=== PATIENT | female | born 1980 | race African-American/Black ===

== ENCOUNTER 2019-05-22 14:48 | Outpatient (CLI) | payer OTHER, SELFPAY | END 2019-05-22 14:49 | disposition home or self-care (01) | PROVIDERS: PCP Family Medicine; Visit Provider Obstetrics & Gynecology Gynecology | DX: Z01.812 Encounter for preprocedural laboratory examination (principal); D25.9 Leiomyoma of uterus, unspecified | CPT/HCPCS: 36415; 86850; 86900; 86901 ==

== ENCOUNTER 2019-06-04 11:46 | Inpatient (IN) | payer OTHER, SELFPAY ==
[2019-05-21 09:44] VITALS: BMI 29.0
[2019-06-04] VITALS (17 sets, daily range): BP systolic 111–140; BP diastolic 69–93; PULSE 62–101; RESP 16–23; TEMP 35.9–36.9; O2SAT 94–100; BMI 29.5
--- NOTE | 2019-06-04 08:25 | P.PNAN_ITS ---
Anes - Initial Pre Proc Eval Procedure: Operation Date: 06/04/19 09:15 Proposed Procedures p Total Abdominal Hysterectomy, Bilateral Salpingectomy - Brigitte Vital MD Date/Time: 06/04/19 08:25 Surgeon: Brigitte Vital MD Pre Op Diagnosis: uterine fibroids Patient Data Age: 39 Gender: F Height: 5 ft 3 in Weight: 74.39 kg Allergies Allergy/AdvReac Type Severity Reaction Status Date / Time No Known Allergies Allergy Verified 05/21/19 10:07 Home Medications Medication Instructions Recorded Confirmed Type escitalopram oxalate 20 mg PO DAILY 05/21/19 05/21/19 History levonorgestrel-ethinyl estrad 1 tablet PO DAILY 05/21/19 05/21/19 History multivitamin [Daily Multi-Vitamin] 1 tablet PO DAILY 05/21/19 05/21/19 History valacyclovir 500 mg PO DAILY 05/21/19 05/21/19 History Patient hx anesthesia problems: none Family hx anesthesia problems: none [facility] Past Medical History Medical History (Updated 06/04/19 @ 08:15 by Jaron Yee MD) Arthritis Family History Family History (Updated 07/28/17 @ 15:50 by DOCTOR UNKNOWN) Father Hypertension Asthma Patient's father is in good health Family history of arthritis Mother Patient's mother is in good health Sibling Patient's brother is in good health Social History Social History Smoking status: Never smoker Alcohol intake: never Anes - Eval Final PreProcedure Day of Procedure 06/04/19 08:25 Patient weight: normal Heart: regular rate and rhythm Lungs: clear to auscultation Airway: Mallampati scale class II Neurological: alert and oriented Last oral intake: >/= 8 hours ASA classification: II Emergent: no Anesthetic plan: proceed Anesthesia type and monitoring: general ETT Informed Consent: The patient's anesthetic plan and its attendant risks and benefits were discussed with the patient/family/POA. Questions were solicited and answers provided to the satisfaction of the patient/family/POA.
[2019-06-04] MEDS: LACTATED RINGERS 1,000 ML 30 ML IV CONT ×2 (08:45→10:41)
--- NOTE | 2019-06-04 08:48 | PM.IMHP ---
H&P: HPI History of Present Illness Chief complaint: uterine fibroids Narrative: Dunia Gerber is a 39 year old female with symptomatic uterine fibroids. Patient with urinary frequency, constipation, and pelvic pressure. Patient without heavy cycles due to continuous ocp's. Patient has no desire for children and requests to proceed with KRISTOFER-BS. RIsks of infection, bleeding, injury to organs (eg. bowel, bladder, ureters, ovaries), DVT, and ansethesia. Patient is aware this will render her sterile. Patient voices understandind and agrees to proceed PMFSH Past Medical History Medical History (Updated 06/04/19 @ 08:50 by Brigitte Vital MD) Arthritis Family History Family History (Updated 07/28/17 @ 15:50 by DOCTOR UNKNOWN) Father Hypertension Asthma Patient's father is in good health Family history of arthritis Mother Patient's mother is in good health Sibling Patient's brother is in good health Social History Social History Smoking status: Never smoker Alcohol intake: never Meds Home Medications and Allergies Home Medications Medication Instructions Recorded Confirmed Type escitalopram oxalate 20 mg PO DAILY 05/21/19 05/21/19 History levonorgestrel-ethinyl estrad 1 tablet PO DAILY 05/21/19 05/21/19 History multivitamin [Daily Multi-Vitamin] 1 tablet PO DAILY 05/21/19 05/21/19 History valacyclovir 500 mg PO DAILY 05/21/19 05/21/19 History Allergies Allergy/AdvReac Type Severity Reaction Status Date / Time No Known Allergies Allergy Verified 05/21/19 10:07 Exam Const: General: healthy appearing and alert Orientation/consciousness: patient oriented x3 Resp: Effort & Inspection: normal respiratory effort Auscultation: clear to auscultation bilaterally Cardio: Rate: regular rate Rhythm: regular rhythm GI: GI Palp: Yes Soft to palpation, No Tenderness to palpation present (GI) and No Palpable mass present : External Female Exam: normal external appearance Speculum Exam - Vagina: normal appearance of the vagina and normal vaginal discharge Speculum Exam - Cervix: normal appearance of the cervix Bimanual exam- vagina & uterus: consistency normal and enlarged (16 wk size) Bimanual Exam- Adnexa, other: normal adnexae and No adnexal tenderness Neuro: General: patient oriented x3 Assessment and Plan Assessment and plan (1) Fibroids: Code(s): D21.9 - Benign neoplasm of connective and other soft tissue, unspecified Status: Acute Assessment and Plan: Plan to proceed with KRISTOFER-BS
[2019-06-04] MEDS: ceFAZolin 2 GM/D5W 50 ML 2 GM/50 ML BAG IVPB (09:10)
[2019-06-04] MEDS: KETOROLAC 30 MG/ML VIAL (*BKC) IV PUSH (10:22)
--- NOTE | 2019-06-04 10:25 | PM.OP ---
Procedure Note - Brief Procedure Note - Brief Date of procedure: 06/04/19 Pre-op diagnosis: uterine fibroids Post-op diagnosis: same Procedure performed: KRISTOFER-BS Anesthesia: GETA Surgeon: Brigitte Vital MD Estimated blood loss (mL): 300 Drains: Yes (aguilera) Packing: No Pathology: yes (uterus and B tubes) Complications: No immediate complications Condition: stable Disposition: PACU Findings: enlarged fibroid uterus; normal appearing tubes and ovaries; posterior uterus adherent to small bowel
--- NOTE | 2019-06-04 10:26 | PM.DS ---
DS: Diagnosis Admitting Diagnosis Admitting Diagnosis: Leiomyoma of uterus, unspecified Discharge Diagnosis (1) S/P KRISTOFER (total abdominal hysterectomy): Code(s): Z90.710 - Acquired absence of both cervix and uterus Status: Acute DS: Summary Time Spent with Patient Time attestation: Total time spent providing and/or coordinating discharge services: Discharge Plan Discharge Patient Disposition: Home, Self-Care Discharge Instructions: pelvic rest x 6 wks; no driving x 2 wks; no lifting >10 lbs Discharge Medications: No Action multivitamin [Daily Multi-Vitamin] Tablet 1 tablet PO DAILY RF: 0 levonorgestrel-ethinyl estrad 0.1-20 mg-mcg tablet 1 tablet PO DAILY RF: 0 valacyclovir 500 mg tablet 500 mg PO DAILY RF: 0 escitalopram oxalate 20 mg tablet 20 mg PO DAILY RF: 0 Quality VTE Prophylaxis VTE prophylaxis: mechanical ordered
--- NOTE | 2019-06-04 11:20 | SUR.PHASEI ---
1120 - family updated on pt's status and sent to floor
[2019-06-04] MEDS: HYDROMORPHONE HCL 1 MG/ML INJ 0.5 MG IV PUSH ×2 (11:31→11:41)
[2019-06-04] MEDS: DEXTROSE 5%/LACTATED RINGERS 1,000 ML 125 ML IV CONT (12:55)
--- NOTE | 2019-06-04 13:15 | PC.NURSE ---
Addendum entered by Lorraine Stockton RN 06/04/19 13:18: The time of this admission was at 1153. Original Note: Pt admitted to room 279 per bed. Alert and oriented x3. NC with 2L O2 in place. Pt. significant other at bedside.
--- NOTE | 2019-06-04 17:51 | OP_ITS ---
DATE OF PROCEDURE: 06/04/2019 PREOPERATIVE DIAGNOSIS: Symptomatic fibroid uterus. POSTOPERATIVE DIAGNOSIS: Symptomatic fibroid uterus. PROCEDURE: Total abdominal hysterectomy, bilateral salpingectomy. ANESTHESIA: General with ET tube. FINDINGS: The uterus is enlarged at the umbilicus with multiple fibroids. Tubes and ovaries appear normal. The entire posterior surface of the uterus is adherent to the underlying small bowel. ESTIMATED BLOOD LOSS: 300 cc. PATHOLOGY: Uterus, bilateral tubes. DESCRIPTION OF PROCEDURE: The patient is taken to the operating room, placed under general anesthesia in the dorsal supine position. She is prepped and draped in the usual sterile fashion. Abdominal exam under anesthesia reveals the uterus to be at the umbilicus, but it does not feel very wide. Decision is made for a Pfannenstiel skin incision, which is made with a scalpel and carried down to the underlying layer of fascia. Fascia is nicked in the midline and extended laterally using Colón scissors. Bleeding vessels in the subcutaneous tissues are cauterized for hemostasis. The incision of the fascia extended laterally using Colón scissors. Ochsners are used to tent the fascia, which is then dissected off using sharp and blunt dissection. The rectal muscles are in the midline. The peritoneum is tented and entered with Metzenbaum. The incision is extended with blunt traction. Pelvic exam at that time reveals dense adhesions to the small bowel posteriorly and multiple fibroids. The bowel is packed away laterally using moist laparotomy sponges. The patent legal assistant applied countertraction to the small bowel as I dissected the small bowel off using sharp dissection under direct visualization as well as blunt dissection. Once the bowel is dissected completely free of the posterior uterus, the round ligaments are doubly ligated with 0 Vicryl, transected, suture ligated with 0 Vicryl. The round ligaments are transected and the anterior leaf of the broad ligament incised meeting in the midline. The utero-ovarian ligaments are isolated. A window is created in the posterior leaf of the broad ligament. The tubes are grasped with a Burchard and pulled towards the uterine fundus. The ligament is clamped, transected, and suture ligated with 0 Vicryl excising the tube but leaving the ovary in place. The uterine vessels are then skeletonized, clamped, transected, and suture ligated with 0 Vicryl. The cardinal and uterosacral ligaments are serially clamped, transected, and suture ligated with 0 Vicryl. Uterosacral ligaments are tagged for future use. The vaginal cuff is entered on the left during the last pedicle. Allis clamp is used to grasp the posterior vaginal cuff and the anterior vaginal cuff. The specimen is amputated using Massiel. The vaginal cuff is closed using 0 Vicryl in a running locked fashion tying each angle to the ipsilateral uterosacral ligaments. One additional [id number] suture is required at the left angle for hemostasis towards the bladder flap. The raw surfaces on the bowel peritoneum required minimal Bovie cautery for hemostasis. The pelvis is irrigated and noted to be hemostatic. All instruments and sponges are removed. The fascia is closed using 0 Vicryl in a running fashion. Subcutaneous tissues are irrigated and made hemostatic using Bovie cautery. Skin is closed using 4-0 Vicryl in a subcuticular fashion. Dermaflex is placed over the incision. The patient is awakened from anesthesia and taken to Recovery in stable condition. Galilea I MT: Margareth
[2019-06-04] MEDS: IBUPROFEN 600 MG TABLET PO (20:06)
[2019-06-04] MEDS: ESCITALOPRAM OXALATE 10 MG TABLET 20 MG PO (20:13)
[2019-06-04] MEDS: METOCLOPRAMIDE HCL INJ 10 MG/2 ML VIAL IV PUSH (20:56)
[2019-06-05] MEDS: IBUPROFEN 600 MG TABLET PO ×4 (02:17→20:58)
[2019-06-05 04:45] VITALS: BP 131/82; PULSE 82; RESP 14; TEMP 36.6; O2SAT 97
[2019-06-05 05:46] LABS: Basophils Percent Auto 0.1 % (0.2-1.2); Hemoglobin 13.4 g/dL (12.0-15.0); Immature Granulocyte Absolute 0.05 K/mm3 (0.00-0.031); Immature Granulocyte Percent A 0.4 % (0-0.5); Lymphocytes Percent Auto 13.6 % (18.3-44.2); Mean Corpuscular HGB Conc 32.7 g/dl (32-36); Mean Corpuscular Hemoglobin 27.5 pg (26-34); Mean Platelet Volume 9.9 fl (7.4-10.4); Monocytes Absolute Auto 0.9 K/mm3 (0.1-0.6); Monocytes Percent Auto 6.7 % (2.6-8.5); Neutrophils Percent Auto 79.2 % (45.5-73.1); Platelet Count Result 303 k/mm3 (150-375); Red Blood Count 4.88 M/mm3 (4.2-5.4); Red Cell Distribution Width 12.8 % (11.5-14.5); White Blood Count 13.9 K/mm3 (4.5-10.0)
--- NOTE | 2019-06-05 06:30 | PC.NURSE ---
PT introductions made and plan of care discussed per post op provider relations advocate surgery, pain management, daily care activities. PT verbalized understanding of such care.
[2019-06-05] MEDS: SIMETHICONE 80 MG TAB.CHEW PO ×3 (07:19→15:11)
[2019-06-05] MEDS: VALACYCLOVIR HCL 500 MG TABLET PO ×2 (07:19→07:30)
[2019-06-05 07:45] VITALS: BP 120/81; PULSE 79; RESP 16; TEMP 36.6; O2SAT 100
--- NOTE | 2019-06-05 07:47 | PM.GYNPNOP ---
FISH LIVER SORTER - A/P Postoperative Procedures: Procedures Operation Date: 06/04/19 09:15 Actual Procedures Side Surgeon p Total Abdominal Hysterectomy, Bilateral Salpingectomy Not Applicable Brigitte Vital MD Postoperative day: 1 Postoperative status: doing well Postoperative plan: routine post-op care Time Spent With Patient Time: Total time spent is greater than 50% in coordination of care (as documented) at patient's floor/unit and/or counseling patient: Time with patient: less than 15 minutes FISH LIVER SORTER- PN:Subj Post-Op Subjective Date/time seen: 06/05/19 07:47 Subjective: patient reports feeling better and pain is well controlled Exam : Other: Inc c/d/i abdomen soft, nt, nd FISH LIVER SORTER - PN: Obj Data Vital Signs Vital Signs: Vital Signs - 24 hr 06/04/19 10:41 06/04/19 10:50 06/04/19 11:00 Temperature 98.4 F Pulse Rate 62 63 75 Respiratory Rate 23 H 20 20 Blood Pressure 123/69 111/71 121/71 Pulse Oximetry 100 99 94 06/04/19 11:15 06/04/19 11:30 06/04/19 11:45 Temperature Pulse Rate 71 77 89 Respiratory Rate 20 20 20 Blood Pressure 121/69 126/69 119/71 Pulse Oximetry 94 94 94 06/04/19 11:56 06/04/19 12:00 06/04/19 12:15 Temperature 96.6 F L Pulse Rate 88 86 Respiratory Rate 18 18 Blood Pressure 127/71 127/69 Pulse Oximetry 100 100 100 06/04/19 12:30 06/04/19 13:00 06/04/19 13:30 Temperature 96.7 F L Pulse Rate 87 93 92 Respiratory Rate 18 20 16 Blood Pressure 132/73 129/77 131/77 Pulse Oximetry 100 98 99 06/04/19 14:30 06/04/19 15:50 06/04/19 20:00 Temperature 96.9 F L 97.2 F L Pulse Rate 89 95 101 H Respiratory Rate 18 20 16 Blood Pressure 126/75 129/88 118/71 Pulse Oximetry 98 100 98 06/04/19 23:00 06/05/19 04:45 Temperature 98.0 F 97.9 F Pulse Rate 88 82 Respiratory Rate 16 14 Blood Pressure 133/81 131/82 Pulse Oximetry 97 97 Intake/Output Intake/Output: Intake & Output 03/20 03/15/20 03/16/20 03/17/20 23:59 23:59 23:59 23:59 Intake Total 550 400 Output Total 1200 2000 Balance -650 -1600 Meds/Results Medications: Active Medications Generic Name Dose Route Start Last Admin Trade Name Freq PRN Reason Stop Dose Admin Hydrocodone Bitart/Acetaminophen 1 tab 06/04/19 11:46 06/05/19 07:20 Guymon 5-325 Mg PO 1 tab Q3H PRN Administration Pain Rated 5 or Less Hydrocodone Bitart/Acetaminophen 1 tab 06/04/19 11:46 Guymon 10-325 Mg PO Q3H PRN Pain Rated 6 or Greater Bisacodyl 10 mg 06/04/19 11:46 Dulcolax Suppository RECTAL ONCE PRN Constipation Escitalopram Oxalate 20 mg 06/04/19 12:05 06/04/19 20:13 Lexapro PO 20 mg DAILY MEDINA Administration Fentanyl Citrate 600 mcg in 30 mls @ 0.5 mls/hr 06/04/19 13:00 06/04/19 17:00 Fentanyl 20 Mcg/Ml Product Development Worker IV CONT 10 mcg/hr .Q24H PRN 0.5 mls/hr SERVICE TESTER Management Titration Protocol 10 MCG/HR Ibuprofen 600 mg 06/04/19 11:46 06/05/19 07:20 Motrin PO 600 mg Q6H PRN Administration Cramping Ketorolac Tromethamine 30 mg 06/04/19 11:46 Toradol Inj IV PUSH 06/09/19 11:47 Q6H PRN Pain Rated 4-6 Metoclopramide HCl 10 mg 06/04/19 11:46 06/04/19 20:56 Reglan IV PUSH 10 mg Q6HR PRN Administration nausea Naloxone HCl 0.1 mg 06/04/19 11:46 Narcan IV PUSH Q2M PRN Respiratory rate less than 10 Simethicone 80 mg 06/04/19 11:46 06/05/19 07:19 Mylicon PO 80 mg Q2H PRN Administration Gas Valacyclovir HCl 500 mg 06/04/19 12:05 06/05/19 07:19 Valtrex PO 500 mg DAILY MEDINA Administration Labs CBC & Chem 7: 06/05/19 05:06 Labs: Laboratory Results - last 24 hr 06/05/19 05:06 WBC 13.9 H RBC 4.88 Hgb 13.4 Hct 41.0 MCV 84.0 MCH 27.5 MCHC 32.7 RDW 12.8 Plt Count 303 MPV 9.9 Immature Gran % (Auto) 0.4 Neut % (Auto) 79.2 H Lymph % (Auto) 13.6 L [place] % (Auto) 6.7 Eos % (Auto) 0.0 Baso % (Auto) 0.1 L Lymph # (Au
--- NOTE | 2019-06-05 09:09 | P.PNAN_ITS ---
Anes - Prog Note Post-Op Date/Time: 06/05/19 09:09 Cardiovascular status: normal Respiratory status: normal Airway patency: baseline Mental status: baseline Post-Op hydration status: normal Vital Signs: Last Vital Signs Temp 36.6 C 06/05/19 07:45 Pulse 79 06/05/19 07:45 Resp 16 06/05/19 07:45 BP 120/81 06/05/19 07:45 Pulse Ox 100 06/05/19 07:45 I/O: Intake & Output 06/04/19 06/05/19 06/05/19 23:59 07:59 15:59 Intake Total 200 400 Output Total 525 2000 Balance -325 -1600 Laboratory Tests 06/05/19 05:06 06/05/19 06/05/19 05:06 05:06 WBC 13.9 H RBC 4.88 Hgb 13.4 Hct 41.0 MCV 84.0 MCH 27.5 MCHC 32.7 RDW 12.8 Plt Count 303 MPV 9.9 Immature Gran % (Auto) 0.4 Neut % (Auto) 79.2 H Lymph % (Auto) 13.6 L [place] % (Auto) 6.7 Eos % (Auto) 0.0 Baso % (Auto) 0.1 L Lymph # (Auto) 1.90 [place] # (Auto) 0.9 H Eos # (Auto) 0.0 Baso # (Auto) 0.0 Abs Immat Gran (auto) 0.05 H Absolute Neuts (auto) 11.0 H Absolute Nucleated RBC 0.0 Nucleated RBC % 0.0 Blood Type O Positive Antibody Screen Negative Post-procedural complaints: none Patient Feedback: Patient satisfied with anesthetic care.
[2019-06-05 10:00] VITALS: PULSE 79; RESP 16; O2SAT 100
[2019-06-05] MEDS: ESCITALOPRAM OXALATE 10 MG TABLET 20 MG PO (17:21)
[2019-06-05 20:45] VITALS: BP 138/86; PULSE 64; RESP 14; TEMP 36.9; O2SAT 98
[2019-06-06] MEDS: IBUPROFEN 600 MG TABLET PO (04:50)
[2019-06-06 07:35] VITALS: BP 117/87; PULSE 77; RESP 16; TEMP 36.6; O2SAT 99
[2019-06-06] MEDS: VALACYCLOVIR HCL 500 MG TABLET PO (08:42)
== END 2019-06-06 10:20 | disposition home or self-care (01) | DRG 743 ==
LOC: ANHOB2 06-05 07:51
PROVIDERS: Admitting Provider Obstetrics & Gynecology Gynecology; PCP Family Medicine; Visit Provider Obstetrics & Gynecology
PROC: 0UT94ZZ Resection of Uterus, Percutaneous Endoscopic Approach (ICD-10-PCS; principal; 2019-06-04 09:15)
DX: D25.9 Leiomyoma of uterus, unspecified (principal); R35.0 Frequency of micturition; K59.00 Constipation, unspecified
CPT/HCPCS: 36415; 85025; 86850; 86900; 86901; 88307; A9270; J0690; J1100; J1170; J1885; J2250; J2405; J2704; J2710; J2765; J3010; J7030; J7120; J7121

== ENCOUNTER → 2021-05-06 14:21 | Outpatient (CLI) | payer OTHER, SELFPAY ==
--- NOTE | ~2021-05-06 | MM_ITS ---
EXAMINATION: MM screening [facility] BI w yolie HISTORY: Screening TECHNIQUE: Craniocaudal and mediolateral oblique 3-D tomosynthesis images were obtained and synthetic 2-D images were generated. CAD analysis was submitted and interpreted. COMPARISON: No prior mammogram is available for comparison at this institution. BREAST PARENCHYMAL COMPOSITION: The breasts are heterogeneously dense, which may obscure small masses . FINDINGS: There is no evidence of suspicious mass, calcification, or architectural distortion to sugg est malignancy in either breast. There has been no suspicious interval change. IMPRESSION: 1. No mammographic evidence of malignancy. 2. Recommend routine screening mammography in one year. BI-RADS Category 1: Negative Reviewed, dictated and finalized at location A. OR TECHNICAL SPECIALIST
== END ==
PROVIDERS: PCP Nurse Practitioner; Visit Provider Nurse Practitioner
DX: Z12.31 Encounter for screening mammogram for malignant neoplasm of breast (principal)
CPT/HCPCS: 77063; 77067

== ENCOUNTER → 2022-05-24 14:52 | Outpatient (CLI) | payer OTHER, SELFPAY ==
--- NOTE | ~2022-05-24 | MM_ITS ---
EXAMINATION: MM screening [facility] w yolie HISTORY: Screening mammogram TECHNIQUE: Craniocaudal and mediolateral oblique 3-D tomosynthesis images were obtained and synthetic 2-D images were generated. CAD analysis was submitted and interpreted. COMPARISON: 05/06/2021 BREAST PARENCHYMAL COMPOSITION: The breasts are heterogeneously dense, which may obscure small masses . FINDINGS: No suspicious mass, calcification, or architectural distortion are identified in either dionne ast to suggest malignancy. There has been no suspicious interval change. IMPRESSION: 1. No mammographic evidence of malignancy. 2. Recommend routine screening mammography in one year. BI-RADS Category 1: Negative Reviewed, dictated and finalized at location A. ERY MACHINE OPERATOR
== END ==
PROVIDERS: PCP Family Medicine; Visit Provider Nurse Practitioner
DX: Z12.31 Encounter for screening mammogram for malignant neoplasm of breast (principal)
CPT/HCPCS: 77063; 77067

== ENCOUNTER → 2023-05-06 12:42 | Outpatient (CLI) | payer BC, SELFPAY ==
--- NOTE | ~2023-05-06 | MM_ITS ---
EXAMINATION: MM screening [facility] BI w yolie HISTORY: Screening mammogram TECHNIQUE: Craniocaudal and mediolateral oblique 3-D tomosynthesis images were obtained and synthetic 2-D images were generated. CAD analysis was submitted and interpreted. COMPARISON: 05/24/2022, 05/06/2021 BREAST PARENCHYMAL COMPOSITION: The breasts are heterogeneously dense, which may obscure small masses . FINDINGS: No suspicious mass, calcification, or architectural distortion are identified in either dionne ast to suggest malignancy. There has been no suspicious interval change. IMPRESSION: 1. No mammographic evidence of malignancy. 2. Recommend routine screening mammography in one year. BI-RADS Category 1: Negative Reviewed, dictated and finalized at location A. HOUSE MATERIAL HANDLER
== END ==
PROVIDERS: PCP Obstetrics & Gynecology Gynecology; Visit Provider Obstetrics & Gynecology Gynecology
DX: Z12.31 Encounter for screening mammogram for malignant neoplasm of breast (principal)
CPT/HCPCS: 77063; 77067

== ENCOUNTER 2023-09-02 05:37 | Emergency (ER) | payer SELFPAY ==
--- NOTE | ~2023-09-02 | US_ITS ---
EXAMINATION: US pelvic complete w TV INDICATION: Ovarian torsion. Comparison:Ultrasound dated 01/14/2016 TECHNIQUE: Multiple transabdominal and endovaginal sonographic images of the pelvis performed. FINDINGS: The uterus is surgically absent. The right ovary measures 2.9 x 2.2 x 2.3 cm and the left ovary measures 2.4 x 1.3 x 1.5 cm. There ar e small follicles in each ovary. Normal doppler signal in both ovaries. There is no free fluid in the pelvis. There are no abnormal masses seen on either side. IMPRESSION: 1. Unremarkable pelvic ultrasound. No evidence for torsion. Reviewed, dictated and finalized at location B.
[2023-09-02 05:42] VITALS: BP 168/112; PULSE 62; RESP 16; TEMP 36.5; O2SAT 100
[2023-09-02 05:55] LABS: Basophils Percent Auto 0.3 % (0.2-1.2); Hematocrit 47.6 % (37.0-47.0); Hemoglobin 16.4 g/dL (12.0-15.0); Immature Granulocyte Absolute 0.03 K/mm3 (0.00-0.031); Immature Granulocyte Percent A 0.3 % (0-0.5); Lymphocytes Percent Auto 20.6 % (18.3-44.2); Mean Corpuscular HGB Conc 34.5 g/dl (32-36); Mean Corpuscular Hemoglobin 28.2 pg (26-34); Mean Corpuscular Volume 81.8 fl (80-100); Mean Platelet Volume 10.1 fl (7.4-10.4); Monocytes Absolute Auto 0.7 K/mm3 (0.1-0.6); Monocytes Percent Auto 7.6 % (2.6-8.5); Neutrophils Absolute Auto 6.9 K/mm3 (1.3-6.7); Neutrophils Percent Auto 71.2 % (45.5-73.1); Platelet Count Result 461 k/mm3 (150-375); Red Blood Count 5.82 M/mm3 (4.2-5.4); Red Cell Distribution Width 12.7 % (11.5-14.5); White Blood Count 9.7 K/mm3 (4.5-10.0)
[2023-09-02 06:06] LABS: Alanine Aminotransferase 16 U/L (6-35); Albumin Level 5.4 g/dL (3.5-5.1); Alkaline Phosphatase 86 U/L (38-126); Anion Gap 15 mmol/L (4-12); Aspartate Amino Transferase 29 U/L (14-36); Bilirubin,Total 0.8 mg/dL (0.2-1.3); Blood Urea Nitrogen 10 mg/dL (7-17); Calcium 10.4 mg/dL (8.4-10.2); Carbon Dioxide 24 mmol/L (22-30); Chloride 101 mmol/L (98-107); Estimated CRCL calculation 68 ml/min; Estimated Glomerular Filt Rate > 60; Glucose 120 mg/dL (65-110); Lipase 233 U/L (23-300); Potassium 3.6 mmol/L (3.4-5.0); Sodium 140 mmol/L (137-145)
--- NOTE | 2023-09-02 06:30 | ED.ABDPAIN ---
HPI - Abdominal Pain General Chief Complaint: Abdominal Pain <Yolanda Burciaga MD - Last Filed: 09/14/23 18:37> Stated Complaint: abd pain <Yolanda Burciaga MD - Last Filed: 09/14/23 18:37> Time Seen by Provider: 09/02/23 06:14 <Yolanda Burciaga MD - Last Filed: 09/14/23 18:37> History of Present Illness HPI narrative: Patient is a 43-year-old female who presents to the emergency department this morning complaining of lower abdominal pain. Patient is unable to specify which side the pain is on but states that is so severe and admits that has been ongoing for the past 3 months although the severity is intermittent. Patient states that the pain has been coming and going and has not been persistent. At its worst it is a 10/10. Patient admits that she was told back in November that she does have ovarian cyst. She also admits to a history of a partial hysterectomy. Patient is concerned that she has got some rupture of her cyst or something causing this severe pain. Patient also complains of diarrhea although not denies any additional symptoms or concerns. <Yolanda Burciaga MD - Last Filed: 09/14/23 18:37> Related Data Home Medications: Home Medications Medication Instructions Recorded Confirmed multivitamin (Daily Multi-Vitamin 1 tablet PO DAILY 05/21/19 08/18/22 tablet) hydroxyzine HCl 25 mg tablet 25 mg PO QID PRN 12/17/22 sertraline 100 mg tablet (Zoloft) 150 mg PO DAILY 12/17/22 tramadol 50 mg tablet 50 mg PO Q6H PRN 12/17/22 <Yolanda Burciaga MD - Last Filed: 09/14/23 18:37> Allergies/Adverse Reactions: Allergies Allergy/AdvReac Type Severity Reaction Status Date / Time No Known Allergies Allergy Verified 05/06/23 10:04 <Yolanda Burciaga MD - Last Filed: 09/14/23 18:37> Review of Systems Review of Systems: All systems are reviewed and are negative unless stated otherwise in the HPI. <Yolanda Burciaga MD - Last Filed: 09/14/23 18:37> PMFSH Past Medical History Medical History: Medical History Acute hemorrhagic colitis Arthritis Colitis Disorder of left patella Fibroids Ovarian cyst Psychophysiological insomnia Submucous leiomyoma of uterus <Yolanda Burciaga MD - Last Filed: 09/14/23 18:37> Surgical History Surgical History: Surgical History S/P KRISTOFER (total abdominal hysterectomy) and bilateral salpingectomy <Yolanda Burciaga MD - Last Filed: 09/14/23 18:37> Family History Family History: Family History Father Hypertension Asthma Patient's father is in good health Family history of arthritis Mother Patient's mother is in good health Sibling Patient's brother is in good health <Yolanda Burciaga MD - Last Filed: 09/14/23 18:37> Social History Social History: Social History Social History: Single Smoking packs per day: 0.50 Smoking cigarettes per day: 10.0 Years smoked: 2 Smoking pack-years: 1.00 Smoking status: Former smoker Tobacco type: cigarettes Second hand tobacco smoke exposure: No Alcohol intake: current Alcohol use details: Occasionally Substance use: never Substance use type: does not use Do You Feel Safe in your Home?: Yes Lack of Transportation: No Lack of Food: Never True Current Housing: I Have Housing Concerned About Future Housing: No Difficulty Paying Gas/Electric Bills: No Difficulty Paying for Meds: No Currently Unemployed: No Education: Master's Degree or Higher Difficulty w/ Childcare or Family Care: No Living arrangements: with family 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
[2023-09-02] MEDS: MORPHINE SULFATE (*CRX) 2 MG/ML INJ IV PUSH (06:47)
[2023-09-02] MEDS: SODIUM CHLORIDE 0.9% IV 1,000 ML 999 ML IV CONT (06:47)
[2023-09-02] MEDS: ONDANSETRON INJ 4 MG/2 ML VIAL IV PUSH (06:47)
--- NOTE | 2023-09-02 07:22 | PC.NURSE ---
assumed care of pt from SHERRON mantilla. pt in room, resting on stretcher, no distress at this time. pt informed we are still waiting on urine sample, ambulated to bathroom. no dizziness upon walking
[2023-09-02 07:42] VITALS: BP 157/98; PULSE 63; RESP 20; TEMP 36.8; O2SAT 100
[2023-09-02 07:53] LABS: Appearance Urine Cloudy (Clear); Bacteria Urine 1+ /hpf; Bilirubin Urine Negative (Negative); Blood Urine Negative (Negative); Color Urine Dark Yellow (Yellow); Glucose Urine UA Negative (Negative); Ketones Urine 2+ mg/dL (Negative); Leukocyte Esterase Ur Negative LEU/UL (Negative); Mucus Urine Present /lpf; Need Manual Microscopic Reviewed; Nitrate Urine Negative (Negative); Protein Urine 3+ mg/dL (Negative); Specific Grav Ur 1.043 (1.001-1.035); Squamous Epithelial Cell Urine Moderate /hpf (Few); WBC Urine 0-5 /hpf (0-3); pH Urine 5.5 (5.0-9.0)
[2023-09-02 07:54] LABS: Add Urine Microscopic? YES
[2023-09-02 09:15] VITALS: BP 142/82; PULSE 67; RESP 16; TEMP 36.7; O2SAT 100
== END 2023-09-02 09:17 | disposition home or self-care (01) ==
PROVIDERS: Emergency Provider Emergency Medicine; PCP Family Medicine
DX: K52.9 Noninfective gastroenteritis and colitis, unspecified (principal); M19.90 Unspecified osteoarthritis, unspecified site; F51.04 Psychophysiologic insomnia; Z87.891 Personal history of nicotine dependence; Z90.710 Acquired absence of both cervix and uterus; Z79.899 Other long term (current) drug therapy
CPT/HCPCS: 36415; 76830; 76856; 80053; 81001; 83690; 85025; 96361; 96374; 96375; 99284; J2270; J2405; J7030

== ENCOUNTER 2024-05-25 09:33 | Outpatient (CLI) | payer BC, SELFPAY ==
--- OUTSIDE RECORDS SUMMARY | 2024-05-25 10:10 | XMS_ITS | Clinical Summary ---
Author Organization [facility] Address [address] [place] [id number] Care Team Providers Care Oleomargarine Maker Name Role Phone Sol Garcia NP Primary Care Pro vider Allergies No known active allergies Medications SUMAtriptan (IMITREX) 50 mg tabletIndicatio ns:Migraine Take 1 tablet (50 mg total) by mouth once as needed for migraine May repeat after 2 hours. 9 tablet 5 2 Active butalbital-acet aminophen-caffe ine (ESGIC) 50-325-40 mg per tabletIndicatio ns:Migraine Take 1 tablet by mouth every 4 (four) hours as needed for headaches Use no more than 5/day, 10/week, 30/month. 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 Intractable migraine without aura and without status migrainosus 05/28/2021 Assessment & Plan (05/28/2021 5:14 PM JUNIOR ART DIRECTOR): Imitrex sent to the pharmacy. esgic sent to the pharmacy for pain. Keep yourself well hydrated. Make an appointment with your PCP to talk about prevention. Social History Tobacco Use Types Packs/Day Years Used Date Smoking Tobacco: Never Assessed Comments Unknown Sex and Gender Information Value Date Recorded Sex Assigned at Not on file Legal Sex Female 2:22 PM JUNIOR ART DIRECTOR Gender Identity Female 05/28/2021 3:13 PM JUNIOR ART DIRECTOR Sexual Orientation Straight 05/28/2021 3: 13 PM JUNIOR ART DIRECTOR Obstetrics History Plan of Treatment Health Maintenance Due Date Last Done Comments Breast Cancer Screening-Mammogram 1981 Cervical Cancer Screening 1981 Depression Screening 1981 Hepatitis C Screening 1981 Varicella Vaccines (1 of 2 - 13+ 2-dose series) 1994 Regular Well Visit/Exam 18-64 1999 Covid-19 Vaccine (3 - 2023-2 5 season) 2023 01/28/2021, 05/27/2020 Influenza Vaccine (#1) 2023 DTaP/Tdap/Td Vaccine (2 - Td or Tdap) 06/08/2028 06/08/2018 Hepatitis B Screening Completed 01/12/2019 , 07/10/2018, 06/08/2018 HPV Vaccines Aged Out No longer eligi ble based on patient's age to complete this topic Pneumococcal vaccine <65 Aged Out No longer eligible based on patient's age to complete this topic Insurance [employer] OPEN ACCESS Care Teams Oleomargarine Maker Relationship Specialty Start Date End Date Sol Garcia NP PCP - General Internal Medicine 05/28/21
--- OUTSIDE RECORDS SUMMARY | 2024-05-25 10:10 | XMS_ITS | Referral Summary ---
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 Intractable migraine without aura and without status migrainosus 05/28/2021 Assessment & Plan (05/28/2021 5:14 PM STAINED GLASS WINDOW DESIGNER): Imitrex sent to the pharmacy. esgic sent to the pharmacy for pain. Keep yourself well hydrated. Make an appointment with your PCP to talk about prevention. Social History Tobacco Use Types Packs/Day Years Used Date Smoking Tobacco: Never Assessed Comments Unknown Sex and Gender Information Value Date Recorded Sex Assigned at Not on file Legal Sex Female 2:22 PM STAINED GLASS WINDOW DESIGNER Gender Identity Female 05/28/2021 3:13 PM STAINED GLASS WINDOW DESIGNER Sexual Orientation Straight 05/28/2021 3: 13 PM STAINED GLASS WINDOW DESIGNER Plan of Treatment Not on file Insurance [employer] OPEN ACCESS [id number] [place] [id number] Care Teams Test Grader Relationship Specialty Start Date End Date Sol Garcia NP PCP - General Internal Medicine 05/28/21
--- OUTSIDE RECORDS SUMMARY | 2024-05-25 10:10 | XMS_ITS | Clinical Summary ---
Author Organization [facility] [employer] Address [address] [facility] [place] [address] Care Team Providers Care Hands And Dial Inspector Name Role Phone Unavailable Primary Care Provider Unavailabl e Source Comments [facility] [employer],non-owned Affiliates and Associated Physician Practices is amultiple site organization consisting of ambulatory clinics and hospital sitesin [place], [place] and [place]. This disclosure is being madepursuant to the Care Everywhere program and may not contain all information available regarding this patient. Last updated 17.[facility] [employer] Allergies No known active allergies Immunizations Name Administration Dates Next Due HEP A VACCINE, ADULT 01/12/2019,06/08/2018 HEP B VACCINE, ADULT 3 DOSE 01/12/2019, 9,06/08/2018 TDAP (7yrs+) 06/08/2018 Social History Tobacco Use Types Packs/Day Years Used Date Smoking Tobacco: Never Assessed Sex and Gender Information Value Date Recorded Sex Assigned at Not on file Gender Identity Not on file Sexual Orientation Not on file Plan of Treatment Health Maintenance Due Date Last Done Comments LIPID TESTING 1981 MAMMOGRAM 1981 PAP SMEAR 1981 HIV SCREENING 02/15/1996 HEPATITIS C SCREENING 02/10/1999 COVID-19 VACCINE (2023-2 5 season) 2023 INFLUENZA VACCINE (#1) 2023 DEPRESSION SCREENING 03/21/2024 DTAP/TDAP/TD VACCINES (2 - T d or Tdap) 06/08/2028 06/08/2018 ZOSTER VACCINE (1 of 2) 2031 HEPATITIS A VACCINE Completed 01/12/2019, 06/08/2018 HEPATITIS B VACCINE Completed 01/12/2019, 07/10/2018, 06/08/2018 HIB VACCINE Aged Out No longer eligi ble based on patient's age to complete this topic HPV VACCINE Aged Out No longer eligi ble based on patient's age to complete this topic MENINGOCOCCAL (Group B) VACCINE Aged Out No longer eligible b ased on patient's age to complete this topic MENINGOCOCCAL VACCINE Aged Out No drew patrick eligible based on patient's age to complete this topic PNEUMOCOCCAL VACCINE Aged Out No long er eligible based on patient's age to complete this topic
--- OUTSIDE RECORDS SUMMARY | 2024-05-25 10:10 | XMS_ITS | Referral Summary ---
Author Organization [facility] [employer] Address [address] [facility] [place] [address] Care Team Providers Care Joiner Name Role Phone Unavailable Primary Care Provider Unavailabl e Source Comments [facility],non-owned Affiliates and Associated Physician Practices is amultiple site organization consisting of ambulatory clinics and hospital sitesin [place], [place], [place] and [place]. This disclosure is being madepursuant to the Care Everywhere program and may not contain all information available regarding this patient. Last updated 17.[facility] Allergies No known active allergies Immunizations Name [...] Orientation Not on file Plan of Treatment Not on file
--- OUTSIDE RECORDS SUMMARY | 2024-05-25 10:10 | XMS_ITS | Patient Health Summary ---
Author Organization [facility] [employer] Address [address] [facility] [place] [address] Care Team Providers Care Catering Convention Services Manager Name Role Phone Unavailable Primary Care Provider Unavailabl e Note from [facility],non-owned Affiliates and Associated Physician Practices is amultiple site organization consisting of ambulatory clinics and hospital sitesin [place], [place], [place] and [place]. This disclosure is being madepursuant to the Care Everywhere program and may not contain all information available regarding this patient. Last updated 17.[facility] Allergies No known active allergies Immunizations * HEP A VACCINE, ADULT(Given 01/12/2019, 06/08/2018) * HEP B VACCINE, ADULT 3 DOSE(Given 01/12/2019, 07/10/2018, 06/08/2018) * TDAP (7yrs+)(Given 06/08/2018) Social History Tobacco Use Types Packs/Day Years Used Date Smoking Tobacco: Never Assessed Sex and Gender Information Value Date Recorded Sex Assigned at Not on file Gender Identity Not on file Sexual Orientation Not on file
[2024-05-25 10:46] LABS: Hematocrit 40.4 % (37.0-47.0); Hemoglobin 13.1 g/dL (12.0-15.0); Mean Corpuscular HGB Conc 32.4 g/dl (32-36); Mean Corpuscular Hemoglobin 28.1 pg (26-34); Mean Corpuscular Volume 86.5 fl (80-100); Mean Platelet Volume 10.2 fl (7.4-10.4); Platelet Count Result 352 k/mm3 (150-375); Red Blood Count 4.67 M/mm3 (4.2-5.4); Red Cell Distribution Width 12.6 % (11.5-14.5); White Blood Count 8.9 K/mm3 (4.5-10.0)
[2024-05-25 11:21] LABS: Alanine Aminotransferase 14 U/L (6-35); Albumin Level 4.4 g/dL (3.5-5.1); Alkaline Phosphatase 70 U/L (38-126); Anion Gap 8 mmol/L (4-12); Aspartate Amino Transferase 22 U/L (14-36); Bilirubin,Total 0.2 mg/dL (0.2-1.3); Blood Urea Nitrogen 10 mg/dL (7-17); CRP < 0.5 mg/dL (<1.0); Calcium 9.3 mg/dL (8.4-10.2); Carbon Dioxide 29 mmol/L (22-30); Chloride 104 mmol/L (98-107); Estimated Glomerular Filt Rate > 60; Glucose 91 mg/dL (65-110); Potassium 3.9 mmol/L (3.4-5.0); Sodium 141 mmol/L (137-145)
[2024-05-25 11:28] LABS: Erythrocyte Sedimentation Rate 1 mm/hr (0-20)
[2024-05-30 05:53] LABS: Immunoglobulin A 129 mg/dL (47-310); TTG IGA AB <1.0 U/mL
== END 2024-05-25 09:34 | disposition home or self-care (01) ==
LOC: ANHLAB 09:35
PROVIDERS: PCP Family Medicine; Visit Provider Nurse Practitioner
DX: R19.7 Diarrhea, unspecified (principal)
CPT/HCPCS: 36415; 80053; 82784; 84443; 85027; 85652; 86140; 86364

== ENCOUNTER 2024-07-31 02:34 | Day surgery (SDC) | payer BC, SELFPAY ==
[2024-07-17 14:32] VITALS: BMI 24.0
--- OUTSIDE RECORDS SUMMARY | 2024-07-31 02:37 | XMS_ITS | Clinical Summary ---
Author Organization [facility] Address [address] [place] [phone] Care Team Providers Care Assistant Sales Manager Name Role Phone Sol Garcia NP Primary [...] 05/28/2021 Assessment & Plan (05/28/2021 5:14 PM SHEETFED PRESS OPERATOR): Has recovered from COVID-19 but now continues to have migraine headaches. Intractable migraine without aura and without status migrainosus 05/28/2021 Assessment & Plan (05/28/2021 5:14 PM SHEETFED PRESS OPERATOR): Imitrex sent to the pharmacy. esgic sent to the pharmacy for pain. Keep yourself well hydrated. Make an appointment with your PCP to talk about prevention. Social History Tobacco Use Types Packs/Day Years Used Date Smoking Tobacco: Never Assessed Comments Unknown Sex and Gender Information Value Date Recorded Sex Assigned at Not on file Legal Sex Female 2:22 PM SHEETFED PRESS OPERATOR Gender Identity Female 05/28/2021 3:13 PM SHEETFED PRESS OPERATOR Sexual Orientation Straight 05/28/2021 3: 13 PM SHEETFED PRESS OPERATOR Obstetrics History Plan of Treatment Health Maintenance [...] patient's age to complete this topic Insurance [employer] OPEN ACCESS Care Teams Assistant Sales Manager Relationship Specialty Start Date End Date Sol Garcia NP PCP - General Internal Medicine 05/28/21
--- OUTSIDE RECORDS SUMMARY | 2024-07-31 02:37 | XMS_ITS | Clinical Summary ---
Author Organization [facility] [employer] Address [address] [facility] [place] [address] Care Team Providers Care Guard Captain Name Role Phone Unavailable Primary Care Provider Unavailabl e Source Comments [facility] [employer],non-owned Affiliates and Associated Physician Practices is amultiple site organization consisting of ambulatory clinics and hospital sitesin [place], [place]. This disclosure is being madepursuant to the Care Everywhere program and may not contain all information available regarding this patient. Last updated 17.[facility] [employer] Allergies No known active allergies Immunizations Immunization Administration Dates Next Due HEP A VACCINE, ADULT 01/12/2019,06/08/2018 HEP B VACCINE, ADULT 3 DOSE 01/12/2019, 9,06/08/2018 TDAP (7yrs+) 06/08/2018 Social History Tobacco Use Types Packs/Day Years Used Date Smoking Tobacco: Never Assessed Comments Unknown Sex and Gender Information Value Date Recorded Sex Assigned at Not on file Legal Sex Female 2:09 PM CDT Gender Identity Not on file Sexual Orientation Not on file Plan of Treatment Health Maintenance Due Date Last Done Comments LIPID TESTING 1981 MAMMOGRAM 1981 HIV SCREENING 02/15/1996 HEPATITIS C SCREENING 02/10/1999 COVID-19 VACCINE (2023-2 5 season) 2023 DEPRESSION SCREENING 03/21/2024 INFLUENZA VACCINE (Season Ended) 2024 DTAP/TDAP/TD VACCINES (2 - T d or [...] complete this topic MENINGOCOCCAL (Group B) VACCINE SHARED DECISION-MAKING Aged Out No longer eligible based on patient's age to complete this topic MENINGOCOCCAL GROUPS A/C/Y/W VACCINE Aged Out No longer eligible b ased on patient's age to complete this topic PNEUMOCOCCAL VACCINE Aged Out No long er eligible based on patient's age to complete this topic Insurance [employer]
--- OUTSIDE RECORDS SUMMARY | 2024-07-31 02:37 | XMS_ITS | Continuity of Care Document ---
Author Organization [facility] Address [address] [place] [address] Phone Care Team Providers Care Truck Repair Service Estimator Name Role Phone Boy PT, DPT, Maryam Unavailable Unavail able Procedures Procedure Date PT Re-evaluation Therapeutic Activities Therapeutic Exercise Neuromuscular Re-Ed Manual Therapy Therapeutic Activities Therapeutic Exercise Neuromuscular Re-Ed Manual Therapy Therapeutic Activities Therapeutic Exercise Neuromuscular Re-Ed Manual Therapy Therapeutic Activities Neuromuscular Re-Ed Therapeutic Exercise Manual Therapy Therapeutic Activities Neuromuscular Re-Ed Therapeutic Exercise Manual Therapy Therapeutic Activities Neuromuscular Re-Ed Therapeutic Exercise Manual Therapy PT Evaluation Low Complexity Therapeutic Activities Neuromuscular Re-Ed Therapeutic Exercise Advance Directives Directive Yes / No Effective Date File Name No Information Encounters Encounter Description Practice Location Reason(s) For Visit Diagnoses Date Provider Providers Copied on Encounter [facility], [address], [place], [place], [id number], [place] tel:[phone] [place] No Information Boy Francisco. . Referring Provider: Constance Martinez, [address], [place], [address]. tel:[phone] [place] [address] [address] [facility] [address], [place], [place], [id number], tel:[phone] [place] No Information [place] Maryam. . Referring Provider: Constance Martinez, [address] [facility] [address], [place], [address]. tel:[phone] [place] [address] [address] [facility] [facility] [address] [address], [place], [place], [id number], [place] tel:[phone] [place] No Information Traci Benson. . Referring Provider: Constance Martinez, [address] [facility] [address], [place], [address]. tel:[phone] [place] [address] [address] [facility] [address], [place], [place], [id number], [place] tel:[phone] [place] No Information [place] Maryam. . Referring Provider: Constance Martinez, [address] [facility] [address], [place], [address]. tel:[phone] [place], [place] [id number] [facility] [address], [place], [place], [id number], tel:[phone] [place] No Information [place] Maryam. . Referring Provider: Constance Martinez, [address] [facility] [address], [place], [address]. tel:[phone] [place], [place] [id number] [facility] [address], [place], [place], [id number], [place] tel:[phone] [place] No Information [place] Maryam. . Referring Provider: Constance Martinez, [address] [facility] [address], [place], [address]. tel:[phone] [place], [place] [address] [place], [address], [place], [place], [id number], [place] tel:[phone] [place] No Information Traci Benson. . Referring Provider: Constance Martinez, [address] [facility], [place], [address]. tel:[phone] Family History Family Member Type Diagnosis Age At Onset No Information Payers Payer name Insurance type Covered constitution party ID Authoriza tion(s) No Information Social History Type Description Quantity Date Captured Comments Alcohol Use Details Unknown Caffeine Use Details Unknown Tobacco Use Status No Information Smoking Status No Information Non-Smoking Tobacco Use Details : No Details Available : No Details Available Sex Female Chief Complaint And Reason For Visit No Information Reason For Referral Reason For Referral No Information History Of Present Illness Encounter Date Complaint History Of Prese nt Illness No Information Functional Status Date Functional Assessmen t No Information Instructions Date Instruction Additional Infor mation No Information Assessments Type Assessment Date No Information Patient Care Teams Name Effective Dates (start - stop) Status Members No Information
--- OUTSIDE RECORDS SUMMARY | 2024-07-31 02:37 | XMS_ITS | Referral Summary ---
Author Organization [facility] Address [address] [place] [phone] Care Team Providers Care Recoverer Name Role Phone Sol Garcia NP Primary [...] 05/28/2021 Assessment & Plan (05/28/2021 5:14 PM CHARACTER IMPERSONATOR): Has recovered from COVID-19 but now continues to have migraine headaches. Intractable migraine without aura and without status migrainosus 05/28/2021 Assessment & Plan (05/28/2021 5:14 PM CHARACTER IMPERSONATOR): Imitrex sent to the pharmacy. esgic sent to the pharmacy for pain. Keep yourself well hydrated. Make an appointment with your PCP to talk about prevention. Social History Tobacco Use Types Packs/Day Years Used Date Smoking Tobacco: Never Assessed Comments Unknown Sex and Gender Information Value Date Recorded Sex Assigned at Not on file Legal Sex Female 2:22 PM CHARACTER IMPERSONATOR Gender Identity Female 05/28/2021 3:13 PM CHARACTER IMPERSONATOR Sexual Orientation Straight 05/28/2021 3: 13 PM CHARACTER IMPERSONATOR Plan of Treatment Not on file Insurance [employer] OPEN ACCESS [id number] [place] [id number] Care Teams Recoverer Relationship Specialty Start Date End Date Sol Garcia NP PCP - General Internal Medicine 05/28/21
[2024-07-31 10:42] VITALS: BP 128/90; PULSE 76; RESP 17; TEMP 36.1; O2SAT 100; BMI 22.0
--- NOTE | 2024-07-31 10:45 | P.PNAN_ITS ---
Anes - Initial Pre Proc Eval Procedure: Operation Date: 07/31/24 11:30 Proposed Procedures p Colonoscopy - Amado Jacobsen MD Date/Time: 07/31/24 10:45 Surgeon: Amado Jacobsen MD Pre Op Diagnosis: Noninfective gastroenteritis and colitis Patient Data Age: 44 Gender: F Height: 1.63 m Weight: 58.2 kg Last Vital Signs Temp 36.1 C L 07/31/24 10:42 Pulse 76 07/31/24 10:42 Resp 17 07/31/24 10:42 BP 128/90 07/31/24 10:42 Pulse Ox 100 07/31/24 10:42 O2 Del Method Room Air 07/31/24 10:42 Allergies Allergy/AdvReac Type Severity Reaction Status Date / Time No Known Allergies Allergy Verified 07/31/24 10:42 Home Medications ?Medication ?Instructions ?Recorded ?Confirmed ?Type multivitamin (Daily Multi-Vitamin 1 tablet PO DAILY 05/21/19 07/17/24 History tablet) sertraline 100 mg tablet 100 mg PO DAILY #90 tabs 04/30/24 07/17/24 Rx valacyclovir 500 mg tablet 500 mg PO DAILY #90 tabs 04/30/24 07/17/24 Rx dicyclomine 10 mg capsule 10 mg PO .every 6 hours PRN 06/04/24 07/17/24 Rx abdominal pain #120 caps buspirone 10 mg tablet 10 mg PO TID #90 tabs 07/09/24 07/17/24 Rx Patient hx anesthesia problems: none Family hx anesthesia problems: none Results Review: All pre-operative results and documents have been reviewed as part of the pre- operative evaluation. [facility] Past Medical History Medical History Submucous leiomyoma of uterus Psychophysiological insomnia Disorder of left patella Ovarian cyst Acute hemorrhagic colitis Colitis Fibroids Arthritis Surgical History Surgical History S/P KRISTOFER (total abdominal hysterectomy) and bilateral salpingectomy Family History Family History Father Hypertension Asthma Patient's father is in good health Family history of arthritis Mother Patient's mother is in good health Sibling Patient's brother is in good health Social History Social History Social History: Single Smoking packs per day: 0.5 Smoking cigarettes per day: 10.0 Years smoked: 5 Smoking pack-years: 2.50 Smoking status: Current every day smoker Tobacco type: cigarettes Second hand tobacco smoke exposure: No Alcohol intake: never Alcohol use details: Occasionally Substance use: current Substance use type: marijuana Other substance usage details: marijuana weekly Do You Feel Safe in your Home?: Yes Lack of Transportation: No Lack of Food: Never True Current Housing: I Have Housing Concerned About Future Housing: No Difficulty Paying Gas/Electric Bills: No Difficulty Paying for Meds: No Currently Unemployed: No Education: Master's Degree or Higher Difficulty w/ Childcare or Family Care: No Living arrangements: alone 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d by the Patient): Straight or Heterosexual Spiritual care concerns: No Anes - Eval Final PreProcedure Day of Procedure 07/31/24 10:45 Patient weight: normal Heart: regular rate and rhythm Lungs: clear to auscultation Airway: Mallampati scale class II Neurological: alert and oriented Last oral intake: >/= 8 hours ASA classification: II Emergent: no Anesthetic plan: proceed Anesthesia type and monitoring: general GIVS and standard monitoring Results Review: All pre-operative results and documents have been reviewed as part of the pre- operative evaluation. Informed Consent: The patient's anesthetic plan and its attendant risks and benefits were discussed with the patient/family/POA. Questions were solicited and answers provided to the satisfaction of the patient/family/POA.
[2024-07-31] MEDS: LACTATED RINGERS 1,000 ML 150 ML IV CONT (10:53)
--- NOTE | 2024-07-31 11:01 | PM.HPGS ---
History of Present Illness History of Present Illness Consent: Risks, benefits, and alternatives have been discussed and questions answered. Patient agrees to proceed with procedure. Chief complaint: Noninfective gastroenteritis and colitis Narrative: Dunia Gerber is a 44 year old female here for first colonoscopy, diarrhea for more than 1 year, serology for celiac negative Review of Systems Review of Systems: All systems reviewed & are unremarkable except as noted in HPI and below PMFSH Past Medical History Medical History Submucous leiomyoma of uterus Psychophysiological insomnia Disorder of left patella Ovarian cyst Acute hemorrhagic colitis Colitis Fibroids Arthritis Surgical History Surgical History S/P KRISTOFER (total abdominal hysterectomy) and bilateral salpingectomy Family History Family History Father Hypertension Asthma Patient's father is in good health Family history of arthritis Mother Patient's mother is in good health Sibling Patient's brother is in good health Social History Social History Social History: Single Smoking packs per day: 0.5 Smoking cigarettes per day: 10.0 Years smoked: 5 Smoking pack-years: 2.50 Smoking status: Current every day smoker Tobacco type: cigarettes Second hand tobacco smoke exposure: No Alcohol intake: never Alcohol use details: Occasionally Substance use: current Substance use type: marijuana Other substance usage details: marijuana weekly Do You Feel Safe in your Home?: Yes Lack of Transportation: No Lack of Food: Never True Current Housing: I Have Housing Concerned About Future Housing: No Difficulty Paying Gas/Electric Bills: No Difficulty Paying for Meds: No Currently Unemployed: No Education: Master's Degree or Higher Difficulty w/ Childcare or Family Care: No Living arrangements: alone 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d by the Patient): Straight or Heterosexual Spiritual care concerns: No Meds Home Medications and Allergies Home Medications ?Medication ?Instructions ?Recorded ?Confirmed ?Type multivitamin (Daily Multi-Vitamin 1 tablet PO DAILY 05/21/19 07/17/24 History tablet) sertraline 100 mg tablet 100 mg PO DAILY #90 tabs 04/30/24 07/17/24 Rx valacyclovir 500 mg tablet 500 mg PO DAILY #90 tabs 04/30/24 07/17/24 Rx dicyclomine 10 mg capsule 10 mg PO .every 6 hours PRN 06/04/24 07/17/24 Rx abdominal pain #120 caps buspirone 10 mg tablet 10 mg PO TID #90 tabs 07/09/24 07/17/24 Rx Allergies Allergy/AdvReac Type Severity Reaction Status Date / Time No Known Allergies Allergy Verified 07/31/24 10:42 Vital Signs Vital Signs - 24 hr 07/31/24 10:42 Temperature 97 F L Pulse Rate 76 Respiratory Rate 17 Blood Pressure 128/90 Pulse Oximetry 100 Oxygen Delivery Room Air Exam Const: General: comfortable and no acute distress HENMT: Face/Nose/Sinus: Normal nares present Eyes: General: appearance normal, both eyes and all related structures Neck: Neck: no JVD Resp: Auscultation: clear to auscultation bilaterally Cardio: Rate: regular rate Rhythm: regular rhythm GI: Inspection: non-distended GI Palp: Yes Soft to palpation Skin: General skin exam: normal color Neuro: General: gait normal Speech: normal speech Extrem: General: normal to inspection Psych: Mental Status: mental status grossly normal Assessment and Plan Assessment and plan (1) Diarrhea: Qualifiers: Diarrhea type: unspecified type Qualified Code(s): R19.7 - Diarrhea, unspecified Code(s): R19.7 - Diarrhea, unspecified Status: Acute Assessment and Plan: colonoscopy with random biopsies
[2024-07-31 11:17] VITALS: BP 86/54; PULSE 74; RESP 24; O2SAT 100
[2024-07-31 11:27] VITALS: BP 100/66; PULSE 77; RESP 24; O2SAT 100
[2024-07-31 11:37] VITALS: BP 108/65; PULSE 74; RESP 22; O2SAT 100
[2024-07-31 11:47] VITALS: BP 104/71; PULSE 73; RESP 22; O2SAT 100
== END 2024-07-31 12:05 | disposition home or self-care (01) ==
PROVIDERS: PCP Family Medicine; Referring Provider Nurse Practitioner; Visit Provider Internal Medicine Gastroenterology
PROC: 0DJD8ZZ Inspection of Lower Intestinal Tract, Via Natural or Artificial Opening Endoscopic (ICD-10-PCS; CPT 45378; principal; 2024-07-31 11:30)
DX: D12.5 Benign neoplasm of sigmoid colon (principal); F51.04 Psychophysiologic insomnia; M19.90 Unspecified osteoarthritis, unspecified site; F17.210 Nicotine dependence, cigarettes, uncomplicated; F12.90 Cannabis use, unspecified, uncomplicated; Z98.890 Other specified postprocedural states; Z87.19 Personal history of other diseases of the digestive system
CPT/HCPCS: 45380; 45385; 88305; J2003; J2704; J7120

== ENCOUNTER 2024-10-11 13:15 | Outpatient (CLI) | payer BC, SELFPAY ==
--- NOTE | ~2024-10-11 | MM_ITS ---
EXAMINATION: MM screening christoph BI w yolie HISTORY: Screening TECHNIQUE: Craniocaudal and mediolateral oblique 3-D tomosynthesis images were obtained and synthetic 2-D images were generated. CAD analysis was submitted and interpreted. COMPARISON: Comparison to multiple prior studies sequentially, with oldest reviewed study dated 05/06. BREAST PARENCHYMAL COMPOSITION: The breasts are heterogeneously dense, which may obscure small masses . FINDINGS: There is no evidence of suspicious mass, calcification, or architectural distortion to sug gest malignancy in either breast. IMPRESSION: 1. No mammographic evidence of malignancy. 2. Recommend routine screening mammography in one year. BI-RADS Category 1: Negative Reviewed, dictated and finalized at location B.
== END 2024-10-11 13:16 | disposition home or self-care (01) ==
LOC: MICIMG 13:16
PROVIDERS: PCP Obstetrics & Gynecology Gynecology; Visit Provider Obstetrics & Gynecology Gynecology
DX: Z12.31 Encounter for screening mammogram for malignant neoplasm of breast (principal)
CPT/HCPCS: 77063; 77067